=== PATIENT | female | born 1940 | race Native Hawaiian/Other Pacific Islander ===

== ENCOUNTER 2017-03-07 12:44 | Inpatient (IN) | payer OTHER ==
[~2017-03-07] VITALS: Ht 175.3 cm; Wt 94.8 kg
[2017-03-07] VITALS (13 sets, daily range): BP systolic 88–160; BP diastolic 38–65; TEMP 98.2–100.4; Ht 175.3 cm; Wt 94.8 kg
[~2017-03-07 12:44] MED LIST: ALBUTEROL0.083 % INH; ALPR0.2566 PO; AMOXICILLIN250 M2 PO; BUDE1AER5 INH; CARAFATE1 GM PO; DIVALPROEX250 M1 PO; DULCOLAX10 MG RE; FERR325T5 PO; FURO20TA67 PO; GABA300C2 PO; GLUCAGON1 MG IM; HYDRALAZINE10 MG PO; INSUINJP SC; ISOS60TA6 PO; LEVO0.0218 PO; LIPITOR20 MG PO; LORA2INJ21 IM; METO50TA27 PO; MIGHTY SHAKE PO; MULTIVITAMI1 PO; NITR0.4S2 SL; NORCO 10/325***1 TAB PO; REFRESH TEARS0.5 % OPTH; ROBAFEN100 MG/5 M PO; ZESTRIL40 MG PO; [UNRECOGNIZED DRUG - SUPPLY] XX
[2017-03-07] MEDS ORDERED: PROTONIX20 MG PO (14:30)
[2017-03-07] MEDS ORDERED: FIBER LAXATIV0.52 GM OR (14:31)
[2017-03-07] MEDS ORDERED: DIVA250T2 PO (14:32)
[2017-03-07] MEDS ORDERED: RISP0.25 PO (14:32)
[2017-03-07] MEDS ORDERED: CLON0.5T36 PO (14:32)
[2017-03-07] MEDS ORDERED: NYST100016 TOP (14:33)
[2017-03-08] VITALS (24 sets, daily range): BP systolic 87–162; BP diastolic 37–114; TEMP 97.5–98.2
[2017-03-08 06:30] LABS: PLATELET COUNT 105 K/uL (152-353)
[2017-03-08 06:32] LABS: POTASSIUM 3.3 mmol/L (3.6-5.2)
[2017-03-09] VITALS (18 sets, daily range): BP systolic 87–191; BP diastolic 43–94; TEMP 97.6–99.1
[2017-03-09 04:36] LABS: PLATELET COUNT 115 K/uL (152-353)
[2017-03-09 04:49] LABS: POTASSIUM 4.4 mmol/L (3.6-5.2); SODIUM 138 mmol/L (136-145)
[2017-03-10] VITALS (19 sets, daily range): BP systolic 134–196; BP diastolic 58–99; TEMP 20
[2017-03-10 06:09] LABS: PLATELET COUNT 132 K/uL (152-353)
[2017-03-10 06:18] LABS: POTASSIUM 3.2 mmol/L (3.6-5.2); SODIUM 140 mmol/L (136-145)
[2017-03-11] VITALS (21 sets, daily range): BP systolic 95–196; BP diastolic 57–100; TEMP 98.2–99.3
[2017-03-11 06:47] LABS: PLATELET COUNT 154 K/uL (152-353)
[2017-03-11 07:01] LABS: POTASSIUM 3.3 mmol/L (3.6-5.2); SODIUM 140 mmol/L (136-145)
[2017-03-12] VITALS (24 sets, daily range): BP systolic 133–202; BP diastolic 50–96; TEMP 97.7–99.6
[2017-03-12 06:11] LABS: PLATELET COUNT 165 K/uL (152-353)
[2017-03-12 06:34] LABS: POTASSIUM 3.1 mmol/L (3.6-5.2); SODIUM 141 mmol/L (136-145)
[2017-03-13] VITALS (23 sets, daily range): BP systolic 120–187; BP diastolic 43–84; TEMP 97–99
[2017-03-13 07:54] LABS: PLATELET COUNT 180 K/uL (152-353)
[2017-03-13 08:17] LABS: POTASSIUM 2.9 mmol/L (3.6-5.2); SODIUM 141 mmol/L (136-145)
[2017-03-14] VITALS (14 sets, daily range): BP systolic 134–182; BP diastolic 58–86; TEMP 97–98.9
[2017-03-14 06:40] LABS: PLATELET COUNT 194 K/uL (152-353)
[2017-03-14 07:40] LABS: POTASSIUM 3.4 mmol/L (3.6-5.2); SODIUM 142 mmol/L (136-145)
[2017-03-15] VITALS (17 sets, daily range): BP systolic 111–190; BP diastolic 48–96; TEMP 98.3–99.2
[2017-03-15 06:40] LABS: POTASSIUM 3.7 mmol/L (3.6-5.2); SODIUM 142 mmol/L (136-145)
[2017-03-15 15:01] LABS: PLATELET COUNT 195 K/uL (152-353)
[2017-03-16] VITALS (24 sets, daily range): BP systolic 145–198; BP diastolic 46–91; TEMP 97.5–99.3
[2017-03-16 06:31] LABS: PLATELET COUNT 173 K/uL (152-353)
[2017-03-16 06:47] LABS: POTASSIUM 3.2 mmol/L (3.6-5.2); SODIUM 141 mmol/L (136-145)
[2017-03-17] VITALS (23 sets, daily range): BP systolic 124–178; BP diastolic 46–90; TEMP 97.6–99
[2017-03-17 06:37] LABS: PLATELET COUNT 184 K/uL (152-353)
[2017-03-17 07:32] LABS: POTASSIUM 3.5 mmol/L (3.6-5.2); SODIUM 142 mmol/L (136-145)
[2017-03-18] VITALS (23 sets, daily range): BP systolic 90–188; BP diastolic 40–91; TEMP 98–99
[2017-03-18 06:28] LABS: PLATELET COUNT 191 K/uL (152-353)
[2017-03-18 08:22] LABS: SODIUM 137 mmol/L (136-145)
[2017-03-19] VITALS (16 sets, daily range): BP systolic 148–181; BP diastolic 55–94; TEMP 97–98.7
[2017-03-19 05:54] LABS: PLATELET COUNT 202 K/uL (152-353)
[2017-03-19 06:08] LABS: POTASSIUM 3.7 mmol/L (3.6-5.2); SODIUM 141 mmol/L (136-145)
[2017-03-19] MEDS ORDERED: LACTTAB PO (22:45)
[2017-03-19] MEDS ORDERED: MEGE40TA32 PO (22:46)
[2017-03-19] MEDS ORDERED: ACID REDUCER150 M1 PO (22:48)
[2017-03-19] MEDS ORDERED: ZIPR20IN IM (22:50)
[2017-03-19] MEDS ORDERED: ALPR0.2566 PO (22:54)
== END 2017-03-19 16:55 | disposition other institution (70) | DRG 871 ==
LOC: ICU 12:44
PROVIDERS: ADMIT Emergency Medicine
PROC: 05HM33Z Insertion of Infusion Device into Right Internal Jugular Vein, Percutaneous Approach (ICD-10-PCS; principal; 2017-03-08)
DX: A41.89 Other specified sepsis (principal); J18.8 Other pneumonia, unspecified organism; E87.3 Alkalosis; J20.9 Acute bronchitis, unspecified; R41.82 Altered mental status, unspecified; E11.9 Type 2 diabetes mellitus without complications; M62.81 Muscle weakness (generalized); I10 Essential (primary) hypertension; K21.9 Gastro-esophageal reflux disease without esophagitis; E03.8 Other specified hypothyroidism; I25.10 Atherosclerotic heart disease of native coronary artery without angina pectoris; G20 Parkinson's disease; R06.89 Other abnormalities of breathing; E87.6 Hypokalemia; I71.4 Abdominal aortic aneurysm, without rupture; R62.7 Adult failure to thrive; B96.89 Other specified bacterial agents as the cause of diseases classified elsewhere; E83.42 Hypomagnesemia; R56.9 Unspecified convulsions; A08.8 Other specified intestinal infections; L98.8 Other specified disorders of the skin and subcutaneous tissue
CPT/HCPCS: 36415; 36591; 36600; 51702; 80053; 81000; 82550; 82805; 82962; 83605; 83735; 83880; 84100; 84132; 84484; 85027; 85610; 85651; 85730; 86140; 87040; 87045; 87070; 87077; 87088; 87185; 87186; 87205; 87328; 87329; 87493; 87798; 87899; 93005; 94664; 94760; 96372; C1768; J0132; J1450; J1644; J1940; J2060; J2405; J2920; J3475; J3480; J3486; J3490